=== PATIENT | female | born 1945 | race Caucasian/White ===

== ENCOUNTER → 2016-09-10 | Outpatient (CLI) | payer MEDICARE, OTHER ==
[~2016-09-10] MED LIST: ACID CONTROLLER20 MG PO; ASPIRIN CHEWABL81 M1 PO; CALCIUM 600 WI1 EAC1 PO; CRESTOR10 MG PO; LEVOTHROID,S0.075 MG PO; METFORMIN HCL500 M2 PO; SPIRIVA1 INHALATI IH; ZESTORETIC,P1 TABLET PO
== END | disposition home or self-care (01) ==
LOC: CDC 08:27
DX: I49.9 Cardiac arrhythmia, unspecified (principal); I25.2 Old myocardial infarction
CPT/HCPCS: 93000